=== PATIENT | female | born 1960 | race Caucasian/White ===

== ENCOUNTER 2019-04-24 14:06 | Inpatient (IN) | payer OTHER, SELFPAY ==
[~2019-04-24 14:06] MED LIST: Iopamidol-370 76% 500 ML 1 ML ONE
--- NOTE | 2019-04-24 14:45 | CT ---
CT Brain WO Con History: Trauma Comparison: None. Findings: Small subdural hematoma along the left side the anterior falx measuring up to 4 mm in size. This is near the vertex. No significant hemorrhage along the tentorium. The mastoids are clear. Calvarium is intact. Right scalp laceration with small hematoma. Globes are intact. No midline shift. No mass effect. Impression: 1. Anterior and vertex small left-sided falx subdural hematoma measuring up to 4 mm. No sign 2. Right parietal scalp laceration and hematoma.
--- NOTE | 2019-04-24 14:49 | CT ---
CT Cervical Spine WO Con History: Reason For Study Comparison: None. Findings: The occipital condyles are intact. The odontoid process is intact. Normal location of the t emporomandibular joints. No acute traumatic facet joint widening. Mild facet arthrosis mid cervical spine bilaterally. The transverse processes are intact. Hyoid bone is intact. There is a hematoma along the right neck. Likely a right midclavicular fracture. Impression: 1. No acute fracture or malalignment of the cervical spine. 2. Right neck hematoma with a midclavicular fracture incompletely evaluated although seen on the scou t radiograph. Code: CR
[2019-04-24 15:00] LABS: #Eosinphils 0.2 thou/uL (0.0-0.7); #Lymphocytes 1.6 thou/uL (1.20-3.40); #Monocytes 0.7 thou/uL (0.11-0.59); #Neutrophils 7.6 thou/uL (1.40-6.50); %Basophils 0.5 % (0.0-1.0); %Eosinophils 2.2 % (0.0-10.0); %Lymphocytes 15.5 % (21.0-51.0); %Monocytes 6.5 % (0.0-10.0); %Neutrophils 75.3 % (42.0-75.0); Hemoglobin 13.9 g/dL (12.0-16.0); Mean Corpuscular HGB CONC 32.6 g/dL (32.0-36.0); Mean Corpuscular Hemoglobin 28.5 pg (27.0-31.0); Mean Corpuscular Volume 87.4 fL (78.0-98.0); Mean Platelet Volume 7.7 fL (7.4-10.4); Platelet Count 278 thou/uL (130-400); RBC Distribution Width 12.1 % (11.5-14.5); Red Blood Cell (RBC) Count 4.89 mill/uL (4.20-5.40); White Blood Cell (WBC) Count 10.1 thou/uL (4.8-10.8)
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
[2019-04-24 15:21] LABS: ALT (SGPT) 24 U/L (8-55); AST (SGOT) 23 U/L (5-34); Albumin 4.1 g/dL (3.5-5.0); Alcohol Less than 10 mg/dL (Less than 10); Alkaline Phosphatase 81 U/L (40-110); Anion Gap 10 mmol/L (10-20); BUN (Urea Nitrogen) 16 mg/dL (9.8-20.1); Bilirubin, Total 0.5 mg/dL (0.2-1.2); Calc. Creatinine Clearance 0 mL/min (70-130); Calcium 9.3 mg/dL (7.8-10.44); Carbon Dioxide 25 mmol/L (22-29); Chloride 106 mmol/L (98-107); Estimated GFR-MDRD 79; Globulin 2.7 g/dL (2.4-3.5); Glucose 133 mg/dL (70-105); Potassium 4.2 mmol/L (3.5-5.1); Protein, Total 6.8 g/dL (6.0-8.3); Sodium 137 mmol/L (136-145)
[2019-04-24] MEDS ORDERED: Ondansetron PF 4 MG/2 ML Vial IVP PRN (15:54)
[2019-04-24] MEDS ORDERED: hydrALAZINE 20 MG/ML VIAL SLOW IVP PRN (15:54)
[2019-04-24] MEDS ORDERED: HumaLOG 300 UNITS/3 ML VIAL SC PRN (15:54)
[2019-04-24] MEDS ORDERED: Dextrose 5% in Water 1,000 ML IV PRN (15:54)
[2019-04-24] MEDS ORDERED: Dextrose 50% Abboject 50 ML SYRINGE SLOW IVP PRN (15:54)
[2019-04-24] MEDS ORDERED: Cyclobenzaprine 10 MG TAB PO PRN (15:56)
[2019-04-24] MEDS ORDERED: traMADol HCl 50 MG TAB PO PRN (15:56)
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
[2019-04-24] MEDS ORDERED: Ondansetron PF 4 MG/2 ML Vial ONE (17:49)
[2019-04-24] MEDS: Acetaminophen 500 MG TAB PO SCH (18:00)
[2019-04-24] MEDS ORDERED: Morphine 2 MG/ML SYRINGE ONE (18:51)
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
[2019-04-24] MEDS ORDERED: traMADol HCl 50 MG TAB ONE (22:16)
[2019-04-24] MEDS ORDERED: Famotidine 20 MG TAB ONE (22:16)
[2019-04-24] MEDS: traMADol HCl 50 MG TAB PO SCH (22:21)
[2019-04-24] MEDS: Famotidine 20 MG TAB PO SCH (22:23)
[2019-04-24] MEDS: Gabapentin 300 MG CAP PO SCH (22:52)
[2019-04-24] MEDS ORDERED: Scopolamine 1.5 mg/72 hour Patch TD SCH (23:15)
[2019-04-24] MEDS ORDERED: Sodium Chloride 0.9% 1,000 ML IV SCH (23:45)
[2019-04-25 00:33] LABS: Troponin I Less than 0.010 ng/mL (< 0.028)
[2019-04-25 01:25] VITALS: BMI 23.7
[2019-04-25 01:34] LABS: Anion Gap 13 mmol/L (10-20); BUN (Urea Nitrogen) 13 mg/dL (9.8-20.1); Calc. Creatinine Clearance 84 mL/min (70-130); Calcium 8.2 mg/dL (7.8-10.44); Carbon Dioxide 20 mmol/L (22-29); Chloride 112 mmol/L (98-107); Estimated GFR-MDRD 88; Glucose 105 mg/dL (70-105); Magnesium 1.9 mg/dL (1.6-2.6); Phosphorus 3.5 mg/dL (2.3-4.7); Potassium 4.4 mmol/L (3.5-5.1); Sodium 141 mmol/L (136-145)
[2019-04-25] MEDS: traMADol HCl 50 MG TAB PO SCH ×4 (02:20→17:27)
[2019-04-25 03:26] LABS: Bacteria/HPF None Seen HPF (None Seen); Bilirubin Negative (Negative); Blood, Urine Negative (Negative); Clarity Clear (Clear); Glucose, Urine (Dipstick) Normal (Negative); Leukocyte Negative Leu/uL (Negative); Nitrite Negative (Negative); Protein, Urine (Dipstick) Negative (Neg-Trace); RBC/HPF 0-3 HPF (0-3); Squamous Epithelial None Seen HPF (0-3); Urobilinogen Normal mg/dL (Less than 2); WBC/HPF 0-3 HPF (0-3)
[2019-04-25 03:35] LABS: Urine Culture Reflex No No
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
[2019-04-25] MEDS: Acetaminophen 500 MG TAB PO SCH ×4 (05:26→17:26)
--- NOTE | 2019-04-25 08:00 | CT ---
PRELIMINARY REPORT/[facility]/EMERGENCY AFTER HOURS PROCEDURE EXAM: CT Head Without Intravenous Contrast. CLINICAL HISTORY: F/U [facility] TECHNIQUE: Axial computed tomography images of the head/brain without intravenous contrast. COMPARISON: CT\SR - CT BRAIN WO CON - 04/24/2019 02:34 PM HAND STAMPER FINDINGS: BRAIN: Small subdural hematoma measuring up to 4 mm in thickness along the vertex and anterior falx, unchanged in appearance compared to prior. No mass lesion. No CT evidence for acute territorial infarct. No midline shift. VENTRICLES: No hydrocephalus. ORBITS: The orbits are unremarkable. SINUSES AND MASTOIDS: The paranasal sinuses and mastoid air cells are clear. SOFT TISSUES: Small extracranial soft tissue hematoma overlying the right posterior parietal bone wit h skin oscar in place. BONES: No acute skull fracture. IMPRESSION: Small subdural hematoma measuring up to 4 mm in thickness along the vertex and anterior falx, unchang ed in appearance compared to prior. ELECTRONICALLY SIGNED BY: Livia Andrea MD Apr 25, 2019 6:44:57 AM HAND STAMPER This report is intended for review by the ordering physician only, in accordance of law. If you recei ve this report in error, please call [facility] at [phone]. FINAL REPORT CT Brain WO Con History: Repeat evaluation for hemorrhage Comparison: CT prior day Findings: Slight redistribution without interval enlargement of the anterior falx subdural hematoma. Right posterior parietal scalp laceration. Underlying calvarium is intact. Impression: Findings and impression are concordant with the preliminary report. Transcribed Date/Time: 04/25/2019 8:18 AM
--- NOTE | 2019-04-25 08:31 | RAD ---
XR Clavicle Rt 2 V STANDARD History: Clavicle fracture Comparison: CT prior day Findings: Minimal displacement right clavicular fracture with the distal component expected to the ex pected location of the coracoclavicular ligament. No acromioclavicular widening. No coracoclavicular widening. Impression: Minimal displacement of the distal clavicular fracture.
[2019-04-25] MEDS: Senokot S 8.6-50 MG TAB PO SCH ×3 (09:28→20:35)
[2019-04-25] MEDS: Gabapentin 300 MG CAP PO SCH ×3 (09:28→20:34)
[2019-04-25] MEDS: Famotidine 20 MG TAB PO SCH ×2 (09:28→20:35)
[2019-04-25] MEDS: Polyethylene Glycol 3350 17 GM Packet PO SCH (09:29)
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
[2019-04-26] MEDS: Acetaminophen 500 MG TAB PO SCH ×3 (00:19→11:32)
[2019-04-26] MEDS: traMADol HCl 50 MG TAB PO SCH ×3 (00:21→11:32)
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
[2019-04-26 07:39] VITALS: BP 135/86; TEMP 97.9
[2019-04-26] MEDS: Famotidine 20 MG TAB PO SCH (08:54)
[2019-04-26] MEDS: Gabapentin 300 MG CAP PO SCH (08:55)
[2019-04-26] MEDS: Senokot S 8.6-50 MG TAB PO SCH (08:55)
[2019-04-26] MEDS: Polyethylene Glycol 3350 17 GM Packet PO SCH (08:55)
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
== END 2019-04-26 11:40 | disposition home or self-care (01) | DRG 86 ==
LOC: ERS 14:06 → ERHOLD 16:31 → IMCU/EMU 04-25 00:30 → SURG A 04-25 19:34
PROVIDERS: ADMIT Specialist; ATTEND Specialist
DX: S06.5X0A Traumatic subdural hemorrhage without loss of consciousness, initial encounter (principal); S22.41XA Multiple fractures of ribs, right side, initial encounter for closed fracture; V86.59XA Driver of other special all-terrain or other off-road motor vehicle injured in nontraffic accident, initial encounter; S01.01XA Laceration without foreign body of scalp, initial encounter; S42.031A Displaced fracture of lateral end of right clavicle, initial encounter for closed fracture; Z87.442 Personal history of urinary calculi
CPT/HCPCS: 36415; 36416; 70450; 71260; 72125; 74177; 80048; 80053; 80307; 81001; 82533; 83735; 84100; 84484; 85025; 86850; 86900; 86901; 93005; 96360; 96361; 96374; 96375; 99292; G0390; J2270; J2405; Q9967

== ENCOUNTER 2019-05-05 14:40 | Outpatient (CLI) | payer OTHER ==
--- NOTE | 2019-05-05 15:36 | RAD ---
RIGHT CLAVICLE TWO VIEWS: HISTORY: Clavicle fracture. COMPARISON: 04/25/2019 FINDINGS: There is considerable foreshortening and malalignment of the right mid clavicular fracture with infer ior overriding, which is new from the prior 04/25/2019 study. There appear to be displaced rib fractu res involving the right 2nd and 3rd ribs. No pneumothorax. IMPRESSION: 1. Comminuted mid right clavicle fracture with considerable foreshortening and inferior overriding, n ew from the prior study. 2. Displaced right 2nd and 3rd posterolateral rib fractures. POS: OFF
== END 2019-05-05 14:41 | disposition home or self-care (01) ==
LOC: BICRAD 14:40
PROVIDERS: ATTEND Surgery
DX: S42.001A Fracture of unspecified part of right clavicle, initial encounter for closed fracture (principal); S22.41XA Multiple fractures of ribs, right side, initial encounter for closed fracture

== ENCOUNTER 2019-05-07 11:09 | Outpatient (CLI) | payer SELFPAY ==
[2019-05-07 14:48] LABS: Hemoglobin 13.2 g/dL (12.0-16.0); Mean Corpuscular Hemoglobin 27.8 pg (27.0-31.0); Mean Corpuscular Volume 86.9 fL (78.0-98.0); Mean Platelet Volume 6.9 fL (7.4-10.4); Platelet Count 449 thou/uL (130-400); Red Blood Cell (RBC) Count 4.77 mill/uL (4.20-5.40); White Blood Cell (WBC) Count 9.8 thou/uL (4.8-10.8)
[2019-05-07 15:13] LABS: Anion Gap 12 mmol/L (10-20); BUN (Urea Nitrogen) 22 mg/dL (9.8-20.1); Calc. Creatinine Clearance 0 mL/min (70-130); Calcium 9.8 mg/dL (7.8-10.44); Carbon Dioxide 31 mmol/L (22-29); Chloride 103 mmol/L (98-107); Estimated GFR-MDRD 69; Glucose 90 mg/dL (70-105); Potassium 4.5 mmol/L (3.5-5.1); Sodium 141 mmol/L (136-145)
--- NOTE | 2019-05-10 18:59 | EKG ---
Test Reason : Blood Pressure : / mmHG Vent. Rate : 106 BPM Atrial Rate : 106 BPM P-R Int : 118 ms QRS Dur : 084 ms QT Int : 356 ms P-R-T Axes : 064 059 070 degrees QTc Int : 472 ms Sinus tachycardia Otherwise normal ECG When compared with ECG of 24-APR-2019 23:52, (Unconfirmed) No significant change was found Confirmed by FELICITY VILLA, . SArielle ([id number]) on 05/10/2019 6:58:35 PM Referred By: AIRAM Confirmed By:DR. Malcom BLEVINS MD
== END 2019-05-07 11:10 | disposition home or self-care (01) ==
LOC: LABBT 11:09
PROVIDERS: ATTEND Orthopaedic Surgery
DX: Z01.818 Encounter for other preprocedural examination (principal); S42.001A Fracture of unspecified part of right clavicle, initial encounter for closed fracture
CPT/HCPCS: 80048; 85027; 93005; 93010

== ENCOUNTER 2019-05-12 11:02 | Day surgery (SDC) | payer SELFPAY ==
[2019-05-07 13:49] VITALS: BMI 22.1
[~2019-05-12 11:02] MED LIST changes: +Glycopyrrolate 0.2 MG/ML 5 ML SYRINGE ONE; -Iopamidol-370 76% 500 ML 1 ML ONE; +Lidocaine 1% PF 5 ML VIAL ONE; +PHENYLEPHRINE-NS 100 MCG/ML 10 ML SYRINGE ONE; +PROPOFOL 200 MG/20 ML VIAL ONE; +Rocuronium Bromide 10 MG/ML (10ML VIAL) ONE
[2019-05-12] MEDS ORDERED: Neomycin-Polymyxin 1 ML AMP ONE (12:48)
[2019-05-12] MEDS ORDERED: Bupivacaine PF 0.5% 30 ML VIAL ONE ×2 (12:48→13:34)
[2019-05-12] MEDS ORDERED: EPINEPHrine 1 MG/ML AMP ONE (12:48)
[2019-05-12] MEDS ORDERED: Midazolam HCl 2 mg/2 ml Vial ONE (13:14)
[2019-05-12] MEDS ORDERED: Fentanyl 100 MCG/2 ML VIAL ONE ×2 (13:14→14:48)
[2019-05-12] MEDS ORDERED: Lidocaine 1% w/Epinephrine 1:100K 20 ML VIAL ONE (13:34)
--- NOTE | 2019-05-12 14:21 | RAD ---
EXAM: 2 views of the right clavicle HISTORY: Right clavicle fracture COMPARISON: 05/05/2019 FINDINGS: The patient is status post ORIF of the right clavicle with a plate and screws. There is bet ter alignment of the fracture. The visualized upper thorax is unremarkable. IMPRESSION: Status post ORIF of right clavicle fracture.
[2019-05-12] MEDS ORDERED: HYDROcodone/Acetaminophen 5/325 mg Tablet ONE (15:52)
[2019-05-12] MEDS ORDERED: Morphine 2 MG/ML SYRINGE ONE ×2 (16:24→16:44)
--- NOTE | 2019-05-12 16:45 | OP ---
DATE OF PROCEDURE: 05/12/2019 PREOPERATIVE DIAGNOSIS: Segmental midshaft fracture of the right clavicle. POSTOPERATIVE DIAGNOSIS: Segmental midshaft fracture of the right clavicle. PROCEDURE PERFORMED: Open reduction and internal fixation of segmental midshaft fracture of the right clavicle. ANESTHESIA: General. DESCRIPTION OF PROCEDURE: The patient was given preoperative IV antibiotics, taken to the operating room, placed in a supine position. Satisfactory general anesthesia was performed. The patient was then placed in a beach chair position. The right clavicular area was sterilely prepped and draped in the usual fashion. An incision was made along the midportion of the clavicle. Incision was approximately 5 inches in length. Blunt and sharp dissection was made down to the superior aspect of the clavicle and periosteal elevation was performed. There were 2 segmental fragments in the midportion of the clavicle. One of the fragments was reduced with the proximal portion of the bone and internally fixed using a 2.7 cortical screw in a lag fashion and another segmental fracture fragments was held reduced and then it also was internally fixed with a 2.7 locking screw in a lag fashion. A 7-hole Synthes 3.5 LCP superior clavicular plate was then placed over the clavicle. Initially, two 3.5 cortical screws were placed, one proximally and one distally, and then the other five screws were 3.5 locking screws. This was all performed under fluoroscopic visualization, which showed anatomic alignment of the clavicle fracture and proper placement of the plate and screws. The wound was then copiously irrigated with antibiotic solution. The wounds were then infiltrated with a combination of 0.5% Marcaine, epinephrine, and lidocaine. A total of 30 mL was utilized. The fascia was then repaired over the plate and screws using #1 Vicryl in simple and interrupted [id number] sutures. The fat and subcutaneous tissue were closed with 0 Vicryl, which reapproximated the skin, and Steri-Strips were then applied. Sterile dressing was applied. The patient was awakened, extubated, and transferred to recovery room in stable condition. ESTIMATED BLOOD LOSS: 50 mL. COMPLICATIONS: None. DISCHARGE MEDICATION: 1. Tramadol 50 mg one every 6 hours as needed for pain, #50. 2. Flexeril 10 mg one p.o. nightly, #30. PLAN: Follow up in my office in 1 week. Job ID: [id number]
[2019-05-12] MEDS ORDERED: Ketorolac Tromethamine 30 MG/ML VIAL ONE (17:20)
== END 2019-05-12 18:20 | disposition home or self-care (01) ==
LOC: SDC 11:02
PROVIDERS: ATTEND Orthopaedic Surgery
PROC: 0PS904Z Reposition Right Clavicle with Internal Fixation Device, Open Approach (ICD-10-PCS; principal; 2019-05-12)
DX: S42.021A Displaced fracture of shaft of right clavicle, initial encounter for closed fracture (principal); Z79.899 Other long term (current) drug therapy; V86.99XA Unspecified occupant of other special all-terrain or other off-road motor vehicle injured in nontraffic accident, initial encounter
CPT/HCPCS: 76000; C1713; J0171; J0690; J1885; J2001; J2250; J2270; J2704; J3010; S0020